=== PATIENT | female | born 1965 | race Caucasian/White ===

== ENCOUNTER → 2016-10-30 | Outpatient (CLI) | payer OTHER ==
[~2016-10-30] MED LIST: ACYC-114 PO; None per pt
[2016-10-30 16:25] LABS: PATH.CAST-FLAG NOT PRESENT; SPERM-FLAG NOT PRESENT; SRC-FLAG NOT PRESENT; XTAL-FLAG NOT PRESENT; YLC-FLAG NOT PRESENT
== END | disposition home or self-care (01) ==
LOC: STAR 15:08
PROVIDERS: ATTEND Obstetrics & Gynecology Female Pelvic Medicine and Reconstructive Surgery
DX: Z01.818 Encounter for other preprocedural examination (principal); N39.0 Urinary tract infection, site not specified; N39.46 Mixed incontinence
CPT/HCPCS: 36415; 81001; 85025

== ENCOUNTER 2016-11-06 10:42 | Day surgery (SDC) | payer OTHER ==
[~2016-11-06] VITALS: Ht 152.4 cm; Wt 53.0 kg
[~2016-11-06 10:42] MED LIST changes: +BUPIVACAINE/PF 0.25% ONE; +EPINEPHRINE 1 MG/ML, 1ML ONE; +FLUORESCEIN SODIUM 500 MG/5 ML ONE
[2016-11-06] MEDS ORDERED: LACTATED RINGERS 1,000 ML IV SCH ×2 (11:12→13:35)
[2016-11-06 11:15] VITALS: BP 132/88
[2016-11-06] MEDS ORDERED: FENTANYL PF 250 MCG/5ML ONE (11:37)
[2016-11-06] MEDS ORDERED: MIDAZOLAM 1 MG/ML, 2ML ONE (11:37)
[2016-11-06] MEDS ORDERED: THROMBIN 5,000 UNIT VIAL TP ONE (12:25)
[2016-11-06] MEDS ORDERED: KETOROLAC 30 MG/1 ML ONE (12:42)
[2016-11-06] MEDS ORDERED: PROPOFOL 10 MG/ML, 20ML ONE (12:42)
[2016-11-06] MEDS ORDERED: CEFAZOLIN 1,000 MG ONE (12:42)
[2016-11-06] MEDS ORDERED: METOCLOPRAMIDE 5 MG/ML, 2ML ONE (12:42)
[2016-11-06] MEDS ORDERED: ONDANSETRON 2MG/ML, 2ML ONE (12:42)
[2016-11-06] MEDS ORDERED: DEXAMETHASONE 4 MG/ML, 1ML ONE (12:42)
[2016-11-06] MEDS ORDERED: IBUPROFEN 600 MG TABLET PO PRN (14:00)
[2016-11-06] MEDS ORDERED: PROMETHAZINE 25 MG SUPP PR ONE (14:00)
[2016-11-06] MEDS ORDERED: MEPERIDINE/PF 25MG/0.5ML IVPush PRN (14:00)
[2016-11-06] MEDS ORDERED: HYDROmorphone 1 MG/ML, 1ML IV PRN (14:00)
[2016-11-06] MEDS ORDERED: PROMETHAZINE 25 MG/ML, 1ML IV PRN (14:00)
[2016-11-06] MEDS ORDERED: ALBUTEROL/IPRATROPIUM 2.5MG/0.5MG, 3 ML NPPB PRN (14:00)
[2016-11-06] MEDS ORDERED: MIDAZOLAM 1 MG/ML, 2ML IV PRN (14:00)
[2016-11-06] MEDS ORDERED: FENTANYL PF 100 MCG/2ML IV PRN (14:00)
[2016-11-06] MEDS ORDERED: HYDROcodone/APAP 5/325 TABLET PO PRN (14:00)
[2016-11-06] MEDS ORDERED: ACETAMINOPHEN 325 MG TABLET PO PRN (14:00)
[2016-11-06] MEDS ORDERED: LABETALOL 5MG/ML, 20ML IV PRN (14:00)
[2016-11-06] MEDS ORDERED: OXYcodone 5 MG/5 ML ORAL.SOL UDC PO PRN (14:00)
[2016-11-06] MEDS ORDERED: ONDANSETRON 2MG/ML, 2ML IVPush PRN ×2 (14:00)
== END 2016-11-06 16:15 ==
LOC: OUT 10:42
PROVIDERS: ATTEND Obstetrics & Gynecology Female Pelvic Medicine and Reconstructive Surgery
DX: R33.8 Other retention of urine (principal); Z46.6 Encounter for fitting and adjustment of urinary device; Z90.710 Acquired absence of both cervix and uterus; Z85.3 Personal history of malignant neoplasm of breast; Z90.13 Acquired absence of bilateral breasts and nipples; Z98.890 Other specified postprocedural states
CPT/HCPCS: 57287; J0171; J0690; J1100; J1885; J2250; J2405; J2704; J2765; J3010; J3490; J7120